=== PATIENT | male | born 1960 | race Caucasian/White ===

== ENCOUNTER → 2022-01-08 | Outpatient (CLI) | payer MEDICARE, OTHER ==
[~2022-01-08] MED LIST: ALTACE2.5 MG PO; ATORVASTATIN CA80 MG PO; BRILINTA90 MG PO; CHANTIX1 EACH PO; COREG6.25 MG PO; ECOTRIN81 MG PO; IMDUR ER TAB 3030 MG PO; NITROSTAT0.4 MG SL; PROTONIX40 MG PO; REMERON30 MG PO
== END ==
LOC: KOH-I 13:20
DX: F17.210 Nicotine dependence, cigarettes, uncomplicated (principal); R91.1 Solitary pulmonary nodule
CPT/HCPCS: 71271